=== PATIENT | female | born 1965 | race Two or more races ===

== ENCOUNTER 2016-12-05 16:58 | Emergency (ER) | payer BC, OTHER ==
[~2016-12-05] VITALS: Ht 152.4 cm; Wt 104.3 kg
[~2016-12-05 16:58] MED LIST: NO MEDICATIONS
== END 2016-12-05 18:24 | disposition home or self-care (01) ==
LOC: CED 16:58 → CFTX 16:58
DX: T21.22XA Burn of second degree of abdominal wall, initial encounter (principal); T22.211A Burn of second degree of right forearm, initial encounter; T79.9XXA Unspecified early complication of trauma, initial encounter; X11.8XXA Contact with other hot tap-water, initial encounter; Y92.009 Unspecified place in unspecified non-institutional (private) residence as the place of occurrence of the external cause
CPT/HCPCS: 16020; 99283